=== PATIENT | male | born 1985 | race Caucasian/White ===

== ENCOUNTER 2016-08-29 13:19 | Emergency (ER) | payer OTHER ==
[2016-08-29 13:35] VITALS: BP 134/77
[2016-08-29] MEDS ORDERED: Ketorolac 60 MG/2 ML SDV IM ONE (13:56)
--- NOTE | 2016-08-29 13:56 | EDM.PDOC ---
ED HPI GENERAL MEDICAL PROBLEM - General Chief Complaint: Laceration Stated Complaint: CUT HIS FINGER Time Seen by Provider: 08/29/16 13:40 Source of Information: Reports: Patient History Limitations: Reports: No Limitations - History of Present Illness INITIAL COMMENTS - FREE TEXT/NARRATIVE: History of present illness: [31-year-old male comes in with complaints of crushing injury to left hand second digit. The finger has a macerating type injury with the skin being broken.] Review of systems: As per history of present illness and below otherwise all systems reviewed and negative. Past medical history: As per history of present illness and as reviewed below otherwise noncontributory. Surgical history: As per history of present illness and as reviewed below otherwise noncontributory. Social history: No reported history of drug or alcohol abuse. Family history: As per history of present illness and as reviewed below otherwise noncontributory. Physical exam: HEENT: Atraumatic, normocephalic, pupils reactive, negative for conjunctival pallor or scleral icterus, mucous membranes moist, throat clear, neck supple, nontender, trachea midline. Lungs: Clear to auscultation, breath sounds equal bilaterally, chest nontender. Heart: S1S2, regular, negative for clicks, rubs, or JVD. Abdomen: Soft, nondistended, nontender. Negative for masses or hepatosplenomegaly. Negative for costovertebral tenderness. Pelvis: Stable nontender. Genitourinary: Deferred. Rectal: Deferred. Extremities: Second digit left hand with crush type injury, otherwise color good with brisk capillary refill, negative for cords or calf pain. Neurovascular unremarkable. Neuro: Awake, alert, oriented. Cranial nerves II through XII unremarkable. Cerebellum unremarkable. Motor and sensory unremarkable throughout. Exam nonfocal. Diagnostics: [X-ray] Therapeutics: [Toradol 60 mg IM] Impression: [Nondisplaced as fracture, broken skin] Plan: [Antibiotics splint] Definitive disposition and diagnosis as appropriate pending reevaluation and review of above. left 2nd finger Pain Score (Numeric/FACES): 2 - Related Data Allergies Allergy/AdvReac Type Severity Reaction Status Date / Time No Known Allergies Allergy Verified 08/29/16 13:32 Home Meds: Home Meds Cephalexin [Keflex] 500 mg PO QID #40 capsule 08/29/16 [Rx] Past Medical History - Past Surgical History HEENT Surgical History: Reports: Oral Surgery Social & Family History - Family History Family Medical History: Noncontributory - Tobacco Use Smoking Status *Q: Never Smoker - Recreational Drug Use Recreational Drug Use: No ED ROS GENERAL - Review of Systems Review Of Systems: See Below (See history of present illness) ED EXAM, SKIN/RASH Exam: See Below (The history of present illness) Course - Vital Signs Last Recorded V/S: Last Vital Signs Temp 36.3 C 08/29/16 13:32 Pulse 68 08/29/16 13:32 Resp 18 08/29/16 13:32 BP 134/77 08/29/16 13:32 Pulse Ox 98 08/29/16 13:32 - Orders/Labs/Meds Orders: Active Orders 24 hr Category Date Time Status Fingers Second Digit Lt F1 [CR] Stat Exams 08/29/16 13:50 Taken Meds: Medications Discontinued Medications Generic Name Dose Route Start Last Admin Trade Name Freq PRN Reason Stop Dose Admin Ketorolac Tromethamine 60 mg 08/29/16 13:56 08/29/16 14:33 Toradol IM 08/29/16 13:57 Not Given ONETIME ONE Departure - Departure Time of Disposition: 14:46 Disposition: Home, Self-Care 01 Condition: Good Clinical Impression: Fracture of bone, Broken skin - Discharge Information Prescriptions: Cephalexin [Keflex] 500 mg PO QID #40 capsule Forms: ED Department Discharge Additional Instructions: The following information is given to patients seen in the emergency department who are being discharged to home. This information is to outline your options for follow-up care. We provide all patients seen in our emergency department with a follow-up referral. The need for follow-up, as well as the timing and circumstances, are variable depending upon the specifics of your emergency department visit. If you don't have a primary care physician on staff, we will provide you with a referral. We always advise you to contact your personal physician following an emergency department visit to inform them of the circumstance of the visit and for follow-up with them and/or the need for any referrals to a consulting specialist. The emergency department will also refer you to a specialist when appropriate. This referral assures that you have the opportunity for follow-up care with a specialist. All of these measure are taken in an effort to provide you with optimal care, which includes your follow-up. Under all circumstances we always encourage you to contact your private physician who remains a resource for coordinating your care. When calling for follow-up care, please make the office aware that this follow-up is from your recent emergency room visit. If for any reason you are refused follow-up, please contact the [facility] Department at and asked to speak to the emergency department charge nurse. Take medication as directed Leave splint on as discussed Follow up with Ortho as recommended Return to ED as needed as discussed [facility] Professional [address], [address] [place] [address] - My Orders Last 24 Hours: My Active Orders 08/29/16 13:50 Fingers Second Digit Lt F1 [CR] Stat - Assessment/Plan Last 24 Hours: My Active Orders 08/29/16 13:50 Fingers Second Digit Lt F1 [CR] Stat
[2016-08-29] MEDS ORDERED: Bacitracin Oint 1 GM U/D Packet TOP ONE (15:00)
--- NOTE | 2016-08-31 12:56 | CR ---
EXAM DATE: 08/29/16 PATIENT'S AGE: 31 Patient: JESSE JIMÉNEZ Facility: [place], [place] Site . Site : 1985 Study: XRay Extremity Left 2nd digit [id number] 2:21:22 PM Ordering Physician: Doctor Moore Final Report: INDICATION: Injury. Technique: Left hand 3 views. Second digit. IMPRESSION: On the frontal view series 1 possible oblique nondisplaced fracture through the tuft of the distal phalanx of the 2nd digit. Anatomic alignment is present. This is not visualized on the other views but correlate with symptoms and mechanism of injury. Dictated by Felice Schwartz MD @ Aug 29 2016 2:38PM (Electronic Signature) Report Signed by Proxy. MARLENY
== END 2016-08-29 15:22 | disposition home or self-care (01) ==
LOC: MW.ED 13:19
DX: S67.191A Crushing injury of left index finger, initial encounter (principal); S62.661B Nondisplaced fracture of distal phalanx of left index finger, initial encounter for open fracture; X58.XXXA Exposure to other specified factors, initial encounter; Y92.9 Unspecified place or not applicable
CPT/HCPCS: 73140-26-F1; 73140-F1; 99283